=== PATIENT | male | born 1980 | race Caucasian/White ===

== ENCOUNTER 2021-07-30 23:28 | Emergency (ER) | payer OTHER ==
[2021-07-31 00:52] LABS: RED BLOOD COUNT 4.85 M/UL (4.20-5.50); WHITE BLOOD COUNT 6.6 K/UL (4.5-11.0)
[2021-07-31 01:20] LABS: BUN/CREATININE RATIO 11 (0-10)
== END 2021-07-31 03:20 | disposition home or self-care (01) ==
LOC: ER1 23:28
PROVIDERS: Family Medicine
DX: U07.1 COVID-19 (principal); M1A.9XX0 Chronic gout, unspecified, without tophus (tophi); R41.0 Disorientation, unspecified
CPT/HCPCS: 0240U; 70450; 71045; 80053; 80307; 81001; 82140; 82550; 82553; 83605; 83690; 84484; 85025; 87040; 93005; 96360; 99285; G0480